=== PATIENT | male | born 1985 | race Caucasian/White ===

== ENCOUNTER → 2016-11-25 | Outpatient (REF) | payer BC | LOC: M LAB REF 12:13 | PROVIDERS: ATTEND Internal Medicine | DX: E87.5 Hyperkalemia (principal) ==

== ENCOUNTER 2017-02-18 16:13 | Emergency (ER) | payer BC ==
[~2017-02-18] VITALS: Ht 172.7 cm; Wt 86.2 kg
[2017-02-18 16:14] VITALS: BP 131/74
[2017-02-18] MEDS ORDERED: FLUORESCEIN OPHTH 1 MG STRIP OS ONE (16:45)
[2017-02-18] MEDS ORDERED: TETRACAINE 0.5% OPHTH SOLN 4ML OS ONE (16:45)
[2017-02-18] MEDS ORDERED: GENT0.3O3 OS (17:15)
[2017-02-18] MEDS ORDERED: GENTAMICIN 0.3% OPHTH SOL 5 ML BTL OS ONE (17:15)
== END 2017-02-18 17:39 | disposition home or self-care (01) ==
LOC: M ED 17:05
DX: S05.02XA Injury of conjunctiva and corneal abrasion without foreign body, left eye, initial encounter (principal); W50.0XXA Accidental hit or strike by another person, initial encounter; Y92.099 Unspecified place in other non-institutional residence as the place of occurrence of the external cause; Y93.89 Activity, other specified; Y99.9 Unspecified external cause status

== ENCOUNTER → 2018-04-09 | Outpatient (REF) | payer BC ==
[2018-04-11 00:12] LABS: TISSUE TRANSGLUTAMINASE IgA <2 U/mL (0-3)
[2018-04-11 00:12] LABS: ENDOMYSIAL ABY IgA Negative (Negative)
== END ==
LOC: M LAB REF 13:30
DX: K58.0 Irritable bowel syndrome with diarrhea (principal)

== ENCOUNTER 2018-10-14 01:37 | Emergency (ER) | payer BC, OTHER ==
[~2018-10-14] VITALS: Ht 170.2 cm; Wt 81.8 kg
[~2018-10-14 01:37] MED LIST: GENT0.3O3 OS
[2018-10-14 01:51] VITALS: BP 134/91
[2018-10-14 04:11] LABS: HIVEXPOSED0 NEGATIVE (NEGATIVE)
[2018-10-15 11:43] LABS: HEPATITIS B SURFACE ANTIBODY POSITIVE (POSITIVE); HEPATITIS B SURFACE ANTIGEN NEGATIVE (NEGATIVE); HEPATITIS C VIRUS ABY INDEX 0.1 INDEX (<0.8)
== END 2018-10-14 04:07 | disposition home or self-care (01) ==
LOC: M ED 01:37
DX: Z77.21 Contact with and (suspected) exposure to potentially hazardous body fluids (principal); W46.0XXA Contact with hypodermic needle, initial encounter; Y92.89 Other specified places as the place of occurrence of the external cause; Z88.0 Allergy status to penicillin

== ENCOUNTER 2022-04-30 05:06 | Emergency (ER) | payer OTHER ==
[~2022-04-30] VITALS: Ht 170.2 cm; Wt 88.2 kg
[2022-04-30 05:08] VITALS: BP 143/94
== END 2022-04-30 07:44 | disposition home or self-care (01) ==
LOC: M ED 05:06
DX: S63.501A Unspecified sprain of right wrist, initial encounter (principal); S50.11XA Contusion of right forearm, initial encounter; V86.11XA Passenger of ambulance or fire engine injured in traffic accident, initial encounter; Y99.0 Civilian activity done for income or pay; Z87.891 Personal history of nicotine dependence; Z88.0 Allergy status to penicillin

== ENCOUNTER → 2024-05-22 | Outpatient (CLI) | payer BC | LOC: M PLAIMG 08:11 | PROVIDERS: ATTEND Internal Medicine | DX: R06.02 Shortness of breath (principal) ==